=== PATIENT | female | born 1990 ===

== ENCOUNTER 2020-09-08 07:40 | Outpatient (CLI) | payer OTHER ==
--- NOTE | 2020-09-08 08:25 | ULT ---
Pelvic sonogram transabdominal and transvaginal imaging with duplex evaluation HISTORY: Pelvic pain. FINDINGS: Urinary bladder is incompletely distended. Uterus has a homogeneous echotexture and measures up to 6. 5 cm. Endometrium is 0.7 cm. No free fluid. Right ovary measures up to 3.1 cm with follicles and good color and spectral Doppler flow. Left ovary measures up to 4.0 cm with a cyst measuring up to 3.4 cm. Good color and spectral Doppler flow. IMPRESSION : Left ovarian cyst 3.4 cm.
== END 2020-09-08 07:41 | disposition home or self-care (01) ==
LOC: BICULT 07:40
PROVIDERS: ATTEND Nurse Practitioner Family
DX: R10.31 Right lower quadrant pain (principal); N83.202 Unspecified ovarian cyst, left side
CPT/HCPCS: 76856